=== PATIENT | male | born 1955 | race Two or more races ===

== ENCOUNTER 2023-11-05 05:45 | Day surgery (SDC) | payer OTHER ==
[2023-11-01 10:36] LABS: HEMOGLOBIN 15.1 g/dL (13-16.00); MEAN CELL VOLUME 94.2 fL (80.0-100.00); MEAN CORPUSCULAR HEMOGLOBIN 31.6 pg (27.00-32.0); MEAN CORPUSCULAR HGB CONC 33.5 g/dl (32.0-36.0); PLATELET COUNT 258 K/uL (150-450); RED BLOOD COUNT 4.77 M/uL (4.00-6.00)
[2023-11-01 10:38] LABS: URINE APPEARANCE Clear; URINE BILIRRUBIN Negative (NEGATIVE); URINE BLOOD Negative; URINE COLOR Yellow; URINE GLUCOSE Negative (NEGATIVE); URINE KETONE Negative (NEGATIVE); URINE LEUKOCYTE Negative; URINE NITRATE Negative; URINE PROTEIN Negative (NEGATIVE); URINE UROBILINOGEN 0.2 E.U./dl
[2023-11-01 10:44] LABS: URINE BACTERIA 8.8 uL (0.0-1933)
[2023-11-01 10:47] LABS: URINE EPITHELIAL CELLS 0.7 uL (0.0-38.8); URINE RBC 1.2 uL (0.0-20.8); URINE WBC 1.2 uL (0.0-23.2)
[2023-11-01 11:09] LABS: INR 1.05; PARTIAL THROMBOPLASTIN TIME 28.2 SECONDS (22.0-34.0); PROTHROMBIN TIME 11.4 SECONDS (9.0-11.5)
[2023-11-01 11:20] LABS: ALBUMIN 3.9 gm/dL (3.4-5.0); BILIRUBIN TOTAL 0.47 mg/dL (0.3-1.2); CALCIUM 9.5 mg/dL (8.5-10.1); CREATININE SERUM 1.12 mg/dL (0.70-1.30); GFR 65.59; GLOBULINA 3.1 G/DL (2.4-3.5); POTASSIUM 4.93 mEq/L (3.5-5.1)
[2023-11-05] MEDS ORDERED: CEFAZOLIN SODIUM 1,000 MG VIAL ONE (07:12)
[2023-11-05] MEDS ORDERED: BUPIVACAINE HCL/MPF 0.5% 30ML VIAL ONE (07:16)
[2023-11-05] MEDS ORDERED: LIDOCAINE HCL 1%/EPINEPHRINE 20ML VIAL IJ ONE ×2 (07:16→08:00)
[2023-11-05] MEDS ORDERED: BUPIVACAINE HCL 30 ML VIAL IJ ONE (08:00)
[2023-11-05] MEDS ORDERED: CEFAZOLIN SODIUM 1,000 MG VIAL IV ONE (08:00)
[2023-11-05] MEDS ORDERED: HYDROGEN PEROXIDE 473 ML BOTTLE TOP ONE (08:15)
[2023-11-05] MEDS ORDERED: HYDROGEN PEROXIDE 118 ML SOLUTION TOP ONE (08:30)
== END 2023-11-05 11:05 | disposition home or self-care (01) ==
LOC: CIR.AMB 05:45
PROVIDERS: ATTEND Surgery
DX: D21.11 Benign neoplasm of connective and other soft tissue of right upper limb, including shoulder (principal); R22.31 Localized swelling, mass and lump, right upper limb